=== PATIENT | female | born 1960 | race Caucasian/White ===

== ENCOUNTER 2019-03-03 13:53 | Day surgery (SDC) | payer OTHER ==
[~2019-03-03] VITALS: Ht 162.6 cm; Wt 51.7 kg
[2019-03-03] VITALS (18 sets, daily range): BP systolic 89–125; BP diastolic 53–85; PULSE 80–102; RESP 12–31; Ht 162.6 cm; Wt 51.7 kg
[~2019-03-03 13:53] MED LIST: CEFAZOLIN 1 GM INJ ONE; SEVOFLURANE 15 MIN ONE
[2019-03-03] MEDS ORDERED: LISI-471 PO (15:01)
--- NOTE | 2019-03-03 15:26 | PREAC ---
Date/Time of Note Date/Time of Note DATE: 03/03/19 TIME: 15:24 Anesthesia Eval and Record Evaluation Time Pre-Procedure Interview DATE: 03/03/19 TIME: 15:24 Age 59 Sex female NPO: 8 hrs Preoperative diagnosis right hand depuytrens contracture with spiral cord into the small finger with flexion contracture at small finger proximal interphalangeal joint Planned procedure right hand open fasciectomy for dupytrens contracture, including open fasciectomy of the small finger for spiral cord, possible open capsulotomy, capsulectomy and volar soft tissue release at the proximal interphalangeal joint right small finger for flexion contracture Past Medical History Past Medical History: Includes Cardio: HTN Surgery & Anesthesia Issues No known issue Meds Anticoagulation: No Beta Catalina within 24 hr: No Reason Beta Catalina not given: Pt. not on B-Catalina Reported Medications Lisinopril* (Lisinopril*) 20 Mg Tablet, 20 MG PO DAILY, #30 TAB 03/03/19 Meds reviewed: Yes Allergies Coded Allergies: No Known Allergy (Unverified , 03/03/19) Allergies Reviewed: Yes Labs/Studies Labs Reviewed: Reviewed by anesthesiologist Result Diagram: 03/03/19 1451 Laboratory Tests 03/03/19 14:51 test: N/A Studies: ECG (normal sinus rhythm) Pre-procedure Exam Last vitals Vital Signs Date Temp Pulse Resp B/P (MAP) Pulse Ox O2 O2 Flow FiO2 Time Delivery Rate 03/03/19 98.3 102 16 121/85 98 Room Air 14:54 (97) Airway: Adequate mouth opening, Adequate thyromental dist Mallampati: Mallampati II Teeth: Normal Lung: Normal Heart: Normal ASA Physical Status ASA physical status: 2 Emergency: None Planned Anesthetic General/MAC: LMA Planned Pain Management Parenteral pain med Pre-operative Attestations Prior to commencing anesthesia and surgery, the patient was re-evaluated, there was verification of: *The patient's identity *The results of appropriate recent lab work and preoperative vital signs *The above evaluation not changing prior to induction *Anesthetic plan, risk benefits, alternative and complications discussed with patient/family; questions answered; patient/family understands, accepts and wishes to proceed. GWEN DUTTA MD Mar 03, 2019 15:26
[2019-03-03] MEDS ORDERED: PROCHLORPERAZINE 10 MG INJ IV PRN (15:30)
[2019-03-03] MEDS ORDERED: HYDROmorphONE 1 MG/5 ML IV SYRINGE IV PRN ×2 (15:30)
[2019-03-03] MEDS ORDERED: ONDANSETRON 4 MG INJ IV PRN (15:30)
[2019-03-03] MEDS ORDERED: OXYCODONE/ACETAMINOPHEN (5/325) TAB PO PRN (15:30)
[2019-03-03] MEDS ORDERED: MEPERIDINE 25 MG INJ IV PRN (15:30)
[2019-03-03] MEDS ORDERED: DIPHENHYDRAMINE 50 MG INJ IV PRN (15:30)
[2019-03-03] MEDS ORDERED: FENTAnyl 50 MCG/ML VIAL IV PRN (15:30)
--- NOTE | 2019-03-03 16:20 | HPN ---
Date/Time of Note Date/Time of Note DATE: 03/03/19 TIME: 16:20 Interval H&P Admission Note Pt. seen H&P reviewed: No system changes PAYAL LEYVA Mar 03, 2019 16:20
[2019-03-03] MEDS ORDERED: LIDOCAINE 2% (SDV) 5 ML INJ ONE (16:31)
[2019-03-03] MEDS ORDERED: MIDAZOLAM 1 MG/ML 2 ML INJ ONE (16:31)
[2019-03-03] MEDS ORDERED: PHENYLephrine 10 MG INJ ONE (16:51)
[2019-03-03] MEDS ORDERED: ONDANSETRON 4 MG INJ ONE (17:12)
[2019-03-03] MEDS ORDERED: PROPOFOL 20 ML ONE ×2 (17:12)
[2019-03-03] MEDS ORDERED: DEXAMETHASONE 4 MG/ML 5 ML INJ ONE (17:12)
[2019-03-03] MEDS ORDERED: FAMOTIDINE 20 MG INJ ONE (17:12)
[2019-03-03] MEDS ORDERED: BUPIVACAINE 0.25% (MPF) 30 ML INJ ONE (17:16)
[2019-03-03] MEDS ORDERED: FENTAnyl 50 MCG/ML VIAL ONE (17:17)
--- NOTE | 2019-03-03 18:04 | OPPN ---
Date/Time of Note Date/Time of Note DATE: 03/03/19 TIME: 18:03 Operative Report Preoperative Diagnosis Right hand Dupuytren's with spiral cord into small finger flexion contracture right small finger PIPJ Postoperative Diagnosis Right hand Dupuytren's with spiral cord into small finger flexion contracture right small finger PIPJ Operation/Procedure Performed open fasciectomy Right hand Dupuytren's with spiral cord into small finger right small finger PIPJ volar capsulotomy for flexion contracture Surgeon see signature line radiology assistant none Anesthesia: general Estimated blood loss: 0 - 10 ml's Transfusion Required none Specimen none Grafts/Implants none Complications none PAYAL LEYVA Mar 03, 2019 18:04
--- NOTE | 2019-03-03 18:14 | PAC ---
Date/Time of Note Date/Time of Note DATE: 03/03/19 TIME: 18:13 Post-Anesthesia Notes Post-Anesthesia Note Last documented vital signs Vital Signs Date Temp Pulse Resp B/P (MAP) Pulse Ox O2 O2 Flow FiO2 Time Delivery Rate 03/03/19 98.3 102 16 121/85 98 Room Air 14:54 (97) Activity: WNL Respiratory function: WNL Cardiovascular function: WNL Mental status: Baseline Pain reasonably controlled: Yes Hydration appropriate: Yes Nausea/Vomiting absent: Yes Comments BP: 98/65 HR: 70 RR: 15 T: 98.6 SaO2: 99% GWEN DUTTA MD Mar 03, 2019 18:14
--- NOTE | 2019-03-04 00:20 | OPR ---
DATE OF OPERATION: 03/03/2019 SURGEON: Payal Stout MD ANESTHESIA: General. PREOPERATIVE DIAGNOSES: 1. Right hand Dupuytren contracture. 2. Right hand Dupuytren contracture with spiral cord into the small finger. 3. Right small finger proximal interphalangeal joint flexion contracture. POSTOPERATIVE DIAGNOSES: 1. Right hand Dupuytren contracture. 2. Right hand Dupuytren contracture with spiral cord into the small finger. 3. Right small finger proximal interphalangeal joint flexion contracture. PROCEDURE: 1. Right hand open fasciectomy for Dupuytren contracture. 2. Right hand excision of spiral cord into the small finger for Dupuytren contracture. 3. Right small finger proximal interphalangeal joint volar capsulotomy/capsulectomy for flexion contracture. OPERATIVE FINDINGS: Right hand Dupuytren contracture with small finger spiral cord and flexion contracture at the PIPJ. INDICATION FOR PROCEDURE: A 59-year-old female with longstanding right hand Dupuytren contracture, who like to proceed with surgical intervention, understanding risks and benefits. DESCRIPTION OF PROCEDURE: The patient was seen in the preoperative area and all further questions were answered. Again, she gave informed consent, understanding risks and benefits. She was taken to the operative suite and placed in the supine position. She was placed under general anesthesia and Ancef 2 grams IV given. Tourniquet placed in the right upper extremity and right upper extremity was prepped with ChloraPrep stick and draped in usual sterile fashion. Esmarch bandage was used to exsanguinate the extremity and tourniquet inflated to 250 mmHg. A zigzag Letty type incision was utilized at the base of the palm and up into the small finger PIPJ with sharp dissection carried down through skin and subcutaneous tissue. Full thickness skin flaps were elevated, radially and ulnarly. The pretendinous cord was identified proximally, was transected proximally. It was dissected out distally with care taken to preserve the neurovascular bundles. The pretendinous cord was excised and attention was then turned to the spiral cord. The neurovascular bundles were protected and the spiral cord was excised at the level of the proximal phalanx and PIPJ and the spiral cord was completely excised. The small finger was still persistently flex at the PIPJ and this was made to proceed with a volar capsulotomy/capsulectomy. The flexor tendons were retracted and the volar plate was elevated off the proximal phalanx as well as the accessory collateral ligaments until the proximal interphalangeal joint came into full extension The finger was completely straighten and the wound was copiously irrigated. Skin closed with 5-0 nylon. Xeroform placed over wound followed by sterile gauze, Webril, and a short arm volar splint with the finger in full extension. Tourniquet deflated after 36 minutes, and the finger was pink, warm and well perfused. The patient was seen postoperative suite in stable condition, tolerated procedure well without complication. SPECIMENS: None. ESTIMATED BLOOD LOSS: 5 mL. COUNTS: Sponge, instrument, needle counts were correct. TOURNIQUET TIME: 36 minutes. CONDITION ON DISCHARGE: Stable. The patient was given a nonrefillable 5-day prescription for pain medication for surgery today. Dictated By: PAYAL WASHINGTON/NED Conf#: [id number] DID#: [id number] ANSLEY
--- NOTE | 2019-03-04 17:07 | RADRPT ---
Vent Rate: 87 bpm RR Interval: 0 msec [place] Interval: 138 msec QRS Duration: 72 msec QT Interval: 392 msec QTC Interval: 471 msec P-R-T [place]: 72 - 36 - 67 degrees Normal sinus rhythm Normal ECG Electronically Signed By: Francisco Javier Tavares
== END 2019-03-03 20:07 | disposition home or self-care (01) ==
LOC: SDS 13:53
PROVIDERS: ATTEND Orthopaedic Surgery Hand Surgery
DX: M72.0 Palmar fascial fibromatosis [Dupuytren] (principal); I10 Essential (primary) hypertension
CPT/HCPCS: 26123; 71045; 80053; 85025; 85610; 85730; 93005; J0690; J1100; J2250; J2370; J2405; J3010; Z7512; Z7610